=== PATIENT | male | born 1985 | race Caucasian/White ===

== ENCOUNTER 2025-01-13 05:48 | Outpatient (CLI) | payer MEDICARE, MEDICAID ==
[~2025-01-13 05:48] MED LIST: NO HOME MEDS; ONDA-243 PO
[2025-01-13] MEDS ORDERED: LIDOcaine 1%/PF 5ML 10 MG/ML VIAL ONE (06:33)
[2025-01-13] MEDS ORDERED: LIDOcaine 1% 30ml preserv. free vial ONE (06:33)
[2025-01-13] MEDS ORDERED: iohexol 300 MG/1 ML 50ml polymer ONE (06:33)
[2025-01-13] MEDS ORDERED: GADOTERATE MEGLUMINE 7.5 MMOL/15 ML VIAL IV ONE (06:33)
--- NOTE | 2025-01-13 09:55 | RADIOLOGY REPORT ---
CLINICAL INDICATION: RIGHT SHOULDER PAIN COMPARISON: None TECHNIQUE: Multiplanar, multi-sequence MRI of the right shoulder was performed after the uneve ntful intra-articular administration of dilute gadolinium solution. Contrast: None INTERPRETATION: Images are somewhat degraded by motion artifact but still of diagnostic value. Glenohumeral joint: The joint is appropriately distended with intra-articular contrast. There is no f racture or bone marrow edema. The alignment is normal. There is no focal cartilage defect. Acromioclavicular joint: The acromoclavicular joint is normal in appearance. Rotator cuff and bursae: The supraspinatus, infraspinatus, teres minor and subscapularis tendons are intact. There is no muscle atrophy. There is no subacromial subdeltoid bursal fluid. Biceps tendon and glenoid labrum: The biceps tendon is normal in appearance. There is a tear of the a nterior to posterior superior glenoid labrum. IMPRESSION: 1. Tear in the anterior to posterior superior glenoid labrum. 2. No rotator cuff tear.
--- NOTE | 2025-01-13 11:22 | RADIOLOGY REPORT ---
ANGIO ARTHROGRAM (A) Date: 01/13/2025 07:16 AM Clinical History: PAIN IN RIGHT SHOULDER Comparison: MR MRI UPPER EXTREMITY RIGHT on DOS: 01/13/25 Procedure: Verbal and written informed consent were obtained from the patient for the procedure of RIGHT SHOULDE R JOINT fluoroscopically guided arthrogram, after the procedure, risks, and benefits of the procedure were explained to the patient. Risks include bleeding, infection, reaction to injected medications, and damage to surrounding anatomic structures. The patient's questions were answered. The patient' s most recent medical history was reviewed. A time out was performed to verify the patient's name, date of , and correct location of the pro cedure, prior to initiation of the procedure. The patient was placed supine on the fluoroscopic table and the area overlying the RIGHT SHOULDER KIMBERLY NT was prepped and draped in the usual sterile fashion. The patient tolerated the procedure well. There were no immediate complications. Home-care instruct ions were reviewed with the patient prior to the patient's discharge from the fluoroscopy suite. The patient verbally affirmed understanding of these instructions. Impression: Technically successful fluoroscopically guided RIGHT SHOULDER JOINT arthrogram. The patient was gallo sported to MRI for further imaging at the completion of the procedure. PROCEDURE BY DR. HANSEN
== END 2025-01-13 23:59 | disposition home or self-care (01) ==
LOC: RAD 05:48
PROVIDERS: ATTEND Family Medicine Sports Medicine
DX: S43.431A Superior glenoid labrum lesion of right shoulder, initial encounter (principal); M25.511 Pain in right shoulder; M77.9 Enthesopathy, unspecified; Z79.4 Long term (current) use of insulin; Z79.899 Other long term (current) drug therapy; Z98.890 Other specified postprocedural states; W18.39XA Other fall on same level, initial encounter; Y93.89 Activity, other specified; Y92.89 Other specified places as the place of occurrence of the external cause; Y99.8 Other external cause status
CPT/HCPCS: 23350; 73222; 77002; A9575; J2003; J3490; Q9967

== ENCOUNTER 2025-03-24 08:48 | Outpatient (CLI) | payer MEDICARE, MEDICAID ==
--- NOTE | 2025-03-24 09:35 | RADIOLOGY REPORT ---
CLINICAL HISTORY: FATTY (CHANGE OF) LIVER, NOT ELSEWHERE CLASSIFIED TECHNIQUE: Complete ultrasound exam of the abdomen was performed. COMPARISON: None FINDINGS: The liver is normal in echogenicity with no focal parenchymal abnormality. The liver measures 17.0 cm in length. The common duct is 5 mm. Gallbladder is absent. The pancreas is not well seen. No ascites or fluid collection. The right kidney is 10.1 cm and the left kidney is 13.0 cm. No hydronephrosis, increased echogenicity, shadowing stone, or focal lesion. Spleen is within normal limits. The visualized aorta and IVC are normal caliber and patent. IMPRESSION: Diffuse hepatic steatosis. Cholecystectomy.
== END 2025-03-24 23:59 | disposition home or self-care (01) ==
LOC: RAD 08:48
PROVIDERS: ATTEND Internal Medicine
DX: K76.0 Fatty (change of) liver, not elsewhere classified (principal); Z90.49 Acquired absence of other specified parts of digestive tract
CPT/HCPCS: 76700